=== PATIENT | female | born 1955 | race Two or more races ===

== ENCOUNTER 2017-03-05 16:13 | Inpatient (IN) | payer SELFPAY ==
[~2017-03-05] VITALS: Ht 160 cm; Wt 80.7 kg
[2017-03-05] MEDS ORDERED: FENTANYL CITRATE/PF 50MCG/ML 2ML VIAL IV ONE (18:30)
[2017-03-05 20:56] LABS: CHLORIDE 106 mEq/L (98-107)
[2017-03-05 21:00] LABS: BASOPHILS % 0.5 % (0.0-2.0); EOSINOPHILS % 1.1 % (0.0-5.0); HEMATOCRIT. 41.9 % (36.0-48.0); MEAN CORPUSCULAR HEMOGLOBIN 30.3 pg (28.0-32.0); MEAN CORPUSCULAR VOLUME 90.4 fL (81.0-99.0); MEAN PLATELET VOLUME 10.1 fl (7.4-10.4); MONOCYTES % 3.8 % (2.0-8.0); NEUTROPHILS % 84.6 % (40.0-76.0); PLATELET 136 x1000/uL (130-400); RED BLOOD CELL COUNT 4.63 mill/uL (4.2-5.4); RED CELL DISTRIBUTION WIDTH 13.4 % (11.6-14.6)
[2017-03-05 21:06] LABS: CARBON DIOXIDE 26 mEq/L (21-32)
[2017-03-05 21:29] LABS: PROTHROMBIN TIME 10.4 sec (9.4-11.6)
[2017-03-05 22:25] LABS: CLARITY URINE CLEAR (CLEAR); COLOR URINE YELLOW (YELLOW); KETONES URINE NEGATIVE (NEGATIVE); LEUKOCYTE ESTERASE URINE 1+ (NEGATIVE); NITRITE URINE NEGATIVE (NEGATIVE); OCCULT BLOOD URINE TRACE (NEGATIVE); PROTEIN URINE NEGATIVE (NEGATIVE); SPECIFIC GRAVITY URINE 1.014 (1.005-1.030); UROBILINOGEN URINE 0.2 E.U./dL (0.2-1.0)
[2017-03-06] MEDS ORDERED: MORPHINE SULFATE 4 MG/ML CPJ (NOT FOR IM USE) IV STA (01:25)
[2017-03-06] MEDS ORDERED: ONDANSETRON HCL 4MG/2ML VIAL IV STA (01:25)
[2017-03-06 03:00] VITALS: BP 113/62
[2017-03-06] MEDS: MORPHINE SULFATE 2 MG/ML CPJ (NOT FOR IM USE) IV PRN ×2 (06:04→13:07)
[2017-03-06] MEDS: DEXT 5%/0.45% NACL KCL 20MEQ/L 1,000 ML IV SCH (06:04)
[2017-03-06 08:00] VITALS: BP 132/66
[2017-03-06] MEDS: DOCUSATE SODIUM 250MG CAPSULE PO SCH ×2 (08:45→10:57)
[2017-03-06] MEDS: ENOXAPARIN 40MG/0.4ML SYR SUBCUT SCH (08:45)
[2017-03-06 08:49] LABS: BASOPHILS % 0.4 % (0.0-2.0); HEMATOCRIT. 41.4 % (36.0-48.0); HEMOGLOBIN. 14.3 g/dL (12.0-16.0); LYMPHOCYTES % 16.9 % (20.0-50.0); MEAN CORPUSCULAR HEMOGLOBIN 31.5 pg (28.0-32.0); MEAN CORPUSCULAR VOLUME 91.2 fL (81.0-99.0); MEAN PLATELET VOLUME 10.3 fl (7.4-10.4); MONOCYTES % 8.3 % (2.0-8.0); NEUTROPHILS % 70.4 % (40.0-76.0); PLATELET 131 x1000/uL (130-400); RED BLOOD CELL COUNT 4.54 mill/uL (4.2-5.4); RED CELL DISTRIBUTION WIDTH 13.5 % (11.6-14.6)
[2017-03-06 09:47] LABS: CHLORIDE 106 mEq/L (98-107)
[2017-03-06 11:58] LABS: CARBON DIOXIDE 24 mEq/L (21-32)
[2017-03-06 12:00] VITALS: BP 116/56
[2017-03-06 16:00] VITALS: BP 98/59
[2017-03-06] MEDS: HYDROCODONE/ACETAMINOPHEN 5/325MG TABLET PO PRN (18:52)
[2017-03-06 20:00] VITALS: BP 109/60
[2017-03-07] VITALS: BP 108/60
[2017-03-07 04:00] VITALS: BP 122/57
[2017-03-07] MEDS: MORPHINE SULFATE 2 MG/ML CPJ (NOT FOR IM USE) IV PRN ×3 (06:44→19:59)
[2017-03-07 07:22] LABS: BASOPHILS % 0.7 % (0.0-2.0); EOSINOPHILS % 4.7 % (0.0-5.0); HEMATOCRIT. 41.7 % (36.0-48.0); HEMOGLOBIN. 14.1 g/dL (12.0-16.0); LYMPHOCYTES % 18.8 % (20.0-50.0); MEAN CORPUSCULAR HEMOGLOBIN 30.5 pg (28.0-32.0); MEAN CORPUSCULAR VOLUME 90.1 fL (81.0-99.0); MEAN PLATELET VOLUME 10.1 fl (7.4-10.4); MONOCYTES % 6.6 % (2.0-8.0); NEUTROPHILS % 69.2 % (40.0-76.0); PLATELET 147 x1000/uL (130-400); RED BLOOD CELL COUNT 4.63 mill/uL (4.2-5.4); RED CELL DISTRIBUTION WIDTH 13.9 % (11.6-14.6)
[2017-03-07 08:00] VITALS: BP 105/59
[2017-03-07 08:11] LABS: CARBON DIOXIDE 24 mEq/L (21-32); CHLORIDE 104 mEq/L (98-107)
[2017-03-07] MEDS: DOCUSATE SODIUM 250MG CAPSULE PO SCH (08:57)
[2017-03-07] MEDS: HYDROCODONE/ACETAMINOPHEN 5/325MG TABLET PO PRN (08:58)
[2017-03-07] MEDS: ENOXAPARIN 40MG/0.4ML SYR SUBCUT SCH (08:59)
[2017-03-07] MEDS: DEXT 5%/0.45% NACL KCL 20MEQ/L 1,000 ML IV SCH (10:10)
[2017-03-07 12:00] VITALS: BP 115/60
[2017-03-07 16:00] VITALS: BP 128/62
[2017-03-07 20:00] VITALS: BP 120/61
[2017-03-07] MEDS: ACETAMINOPHEN 325MG TABLET PO PRN (22:21)
[2017-03-08] VITALS (7 sets, daily range): BP systolic 100–133; BP diastolic 53–69
[2017-03-08] MEDS: DEXT 5%/0.45% NACL KCL 20MEQ/L 1,000 ML IV SCH (05:42)
[2017-03-08] MEDS: HYDROCODONE/ACETAMINOPHEN 5/325MG TABLET PO PRN ×3 (05:51→20:20)
[2017-03-08] MEDS: DOCUSATE SODIUM 250MG CAPSULE PO SCH (08:22)
[2017-03-08] MEDS: MORPHINE SULFATE 2 MG/ML CPJ (NOT FOR IM USE) IV PRN (08:22)
[2017-03-08] MEDS: ENOXAPARIN 40MG/0.4ML SYR SUBCUT SCH (08:23)
[2017-03-08] MEDS: MORPHINE SULFATE 10 MG/ML CPJ IV PRN (16:38)
[2017-03-08] MEDS ORDERED: LACTULOSE 20G/30ML UDC PO PRN (21:00)
[2017-03-09] MEDS: HYDROCODONE/ACETAMINOPHEN 5/325MG TABLET PO PRN ×2 (00:32→23:32)
[2017-03-09] MEDS: DEXT 5%/0.45% NACL KCL 20MEQ/L 1,000 ML IV SCH ×3 (02:10→15:30)
[2017-03-09 04:00] VITALS: BP 109/62
[2017-03-09 08:00] VITALS: BP 121/58
[2017-03-09] MEDS: DOCUSATE SODIUM 250MG CAPSULE PO SCH (08:34)
[2017-03-09] MEDS: ENOXAPARIN 40MG/0.4ML SYR SUBCUT SCH (08:34)
[2017-03-09] MEDS: MORPHINE SULFATE 10 MG/ML CPJ IV PRN ×2 (09:42→17:55)
[2017-03-09] MEDS ORDERED: BUPIVACAINE HCL/EPINEPHRINE 0.5%/0.0005 30ML ONE ×2 (11:57→14:56)
[2017-03-09] MEDS ORDERED: BACITRACIN ZINC 15GM TUBE TOP ONE (11:57)
[2017-03-09] MEDS ORDERED: NORMAL SALINE 0.9% 10 ML SYR ONE (11:57)
[2017-03-09] MEDS ORDERED: BACITRACIN 50,000 UNITS/VIAL ONE (11:58)
[2017-03-09] MEDS ORDERED: FENTANYL CITRATE/PF 50MCG/ML 2ML VIAL ONE (13:08)
[2017-03-09] MEDS ORDERED: MIDAZOLAM HCL 2 MG/2 ML VIAL ONE (13:09)
[2017-03-09] MEDS ORDERED: PROPOFOL 200MG/20ML VIAL IV ONE (13:09)
[2017-03-09] MEDS ORDERED: LIDOCAINE HCL/PF 1% 10 MG/ML 5ML VIAL ONE (13:09)
[2017-03-09] MEDS ORDERED: CEFAZOLIN SODIUM 1000MG/VIAL ONE (13:10)
[2017-03-09] MEDS ORDERED: LABETALOL HCL 20MG/4ML CARPUJECT IV PRN (13:30)
[2017-03-09] MEDS ORDERED: MEPERIDINE HCL/PF 25MG/ML CPJ IV PRN (13:30)
[2017-03-09] MEDS ORDERED: ONDANSETRON HCL 4MG/2ML VIAL IV PRN (13:30)
[2017-03-09] MEDS ORDERED: EPHEDRINE SULFATE 50MG/ML VIAL ONE (13:39)
[2017-03-09] MEDS ORDERED: ONDANSETRON HCL 4MG/2ML VIAL ONE (14:22)
[2017-03-09] MEDS ORDERED: METOCLOPRAMIDE HCL 10MG/2ML VIAL ONE (14:22)
[2017-03-09] MEDS ORDERED: KETOROLAC 30MG/ML VIAL ONE (14:23)
[2017-03-09] MEDS ORDERED: HYDROMORPHONE HCL/PF 2MG/ML (OR) ONE (14:26)
[2017-03-09] MEDS: HYDROMORPHONE HCL/PF 2MG/ML CPJ IV PRN ×5 (15:42→16:34)
[2017-03-09 20:00] VITALS: BP 100/53
[2017-03-09] MEDS: CEFAZOLIN 1000MG PREMIX 50 ML IV SCH (20:00)
[2017-03-10] VITALS (7 sets, daily range): BP systolic 115–152; BP diastolic 54–73
[2017-03-10] MEDS: ACETAMINOPHEN 325MG TABLET PO PRN (04:07)
[2017-03-10] MEDS: DEXT 5%/0.45% NACL KCL 20MEQ/L 1,000 ML IV SCH (04:08)
[2017-03-10] MEDS: MORPHINE SULFATE 10 MG/ML CPJ IV PRN ×4 (04:08→18:33)
[2017-03-10] MEDS: CEFAZOLIN 1000MG PREMIX 50 ML IV SCH ×2 (04:08→12:14)
[2017-03-10] MEDS: ASPIRIN 325MG EC TABLET PO SCH ×2 (09:34→18:32)
[2017-03-10] MEDS: DOCUSATE SODIUM 250MG CAPSULE PO SCH (09:34)
[2017-03-10] MEDS: ENOXAPARIN 40MG/0.4ML SYR SUBCUT SCH (09:35)
[2017-03-10 10:26] LABS: BASOPHILS % 0.3 % (0.0-2.0); EOSINOPHILS % 4.6 % (0.0-5.0); HEMATOCRIT. 36.2 % (36.0-48.0); HEMOGLOBIN. 12.3 g/dL (12.0-16.0); LYMPHOCYTES % 10.5 % (20.0-50.0); MEAN CORPUSCULAR HEMOGLOBIN 31.2 pg (28.0-32.0); MEAN CORPUSCULAR VOLUME 91.6 fL (81.0-99.0); MONOCYTES % 8.6 % (2.0-8.0); PLATELET 142 x1000/uL (130-400); RED BLOOD CELL COUNT 3.95 mill/uL (4.2-5.4); RED CELL DISTRIBUTION WIDTH 13.6 % (11.6-14.6)
[2017-03-10] MEDS: HYDROCODONE/ACETAMINOPHEN 5/325MG TABLET PO PRN (11:49)
== END 2017-03-10 21:25 | disposition home or self-care (01) | DRG 313 ==
LOC: ER 16:13 → 6EST 21:45 → ENRESERV 03-06 00:23 → 6EST 03-07 09:37
PROVIDERS: ADMIT Internal Medicine Geriatric Medicine; ATTEND Internal Medicine Geriatric Medicine
PROC: 0SSG04Z Reposition Left Ankle Joint with Internal Fixation Device, Open Approach (ICD-10-PCS; principal; 2017-03-09 12:30)
DX: S82.852A Displaced trimalleolar fracture of left lower leg, initial encounter for closed fracture (principal); E66.01 Morbid (severe) obesity due to excess calories; R73.9 Hyperglycemia, unspecified; K59.00 Constipation, unspecified; R51 Headache; N95.9 Unspecified menopausal and perimenopausal disorder; W01.0XXA Fall on same level from slipping, tripping and stumbling without subsequent striking against object, initial encounter; Y92.89 Other specified places as the place of occurrence of the external cause; Y99.8 Other external cause status; Y93.89 Activity, other specified
CPT/HCPCS: 27840; 36415; 70450; 71010; 73590; 73610; 80048; 80053; 81001; 85025; 85610; 93005; 93970; 96374; 96375; 97116; 97162; 99285; A4216; C1893; J0171; J0690; J1170; J1650; J1885; J2175; J2250; J2270; J2405; J2704; J2765; J3010; J3490